=== PATIENT | male | born 1945 | race Caucasian/White ===

== ENCOUNTER 2019-09-14 00:32 | Emergency (ER) | payer OTHER ==
[~2019-09-14] VITALS: Ht 170.2 cm; Wt 88.5 kg
[2019-09-14 00:35] VITALS: BP_SYST 149
--- NOTE | 2019-09-14 00:35 | NUR ---
Patient triaged and placed in waiting room. VSS and patient appears in no acute distress at this time. Accompanied by SON, awaiting available bed, and MD notified of need for MSE.
--- NOTE | 2019-09-14 03:12 | NUR ---
Patient to ER bed MARQUEZ to gown for evaluation. Side rails up. Report given to STEPHANIA ABARCA.
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
--- NOTE | 2019-09-14 04:22 | NUR ---
ER MD Baez at bedside for medical evaluation.
[2019-09-14] MEDS ORDERED: METHOCARBAMOL 500 MG TABLET PO ONE (04:45)
[2019-09-14] MEDS ORDERED: ACETAMINOPHEN 500 MG TABLET PO ONE (04:45)
--- NOTE | 2019-09-14 05:25 | NUR ---
No adverse reactions noted after medication administration. Will continue to monitor.
[2019-09-14 05:26] VITALS: BP_SYST 134
--- NOTE | 2019-09-14 05:26 | NUR ---
Patient given written and verbal discharge instructions and verbalizes understanding. ER MD discussed with patient the results and treatment provided. Patient in stable condition. ID arm band removed. No Rx given. Patient educated on pain management and to follow up with PMD. Pain Scale 2/10 tolerable to patient. Opportunity for questions provided and answered.
== END 2019-09-14 05:26 | disposition home or self-care (01) ==
LOC: SED 00:32
DX: S13.9XXA Sprain of joints and ligaments of unspecified parts of neck, initial encounter (principal); G44.209 Tension-type headache, unspecified, not intractable; F43.10 Post-traumatic stress disorder, unspecified; J44.9 Chronic obstructive pulmonary disease, unspecified; Z88.6 Allergy status to analgesic agent; X58.XXXA Exposure to other specified factors, initial encounter; Y93.89 Activity, other specified; Y92.89 Other specified places as the place of occurrence of the external cause; Y99.8 Other external cause status
CPT/HCPCS: 70450-TC; 72125-TC; 72170-TC; 99284; J7030

== ENCOUNTER 2020-05-20 14:13 | Outpatient (CLI) | payer OTHER | END 2020-05-20 20:00 | disposition home or self-care (01) | LOC: SRD 14:13 | DX: G56.03 Carpal tunnel syndrome, bilateral upper limbs (principal) ==

== ENCOUNTER 2021-07-04 09:12 | Outpatient (CLI) | payer OTHER ==
[2021-07-04] MEDS ORDERED: BARIUM SULFATE 135 ML SUSP.RECON (E-Z-HD) PO ONE (09:34)
== END 2021-07-04 21:04 | disposition home or self-care (01) ==
LOC: SRD 09:12
PROVIDERS: ATTEND Internal Medicine
DX: R22.1 Localized swelling, mass and lump, neck (principal)
CPT/HCPCS: 74220-TC

== ENCOUNTER 2022-02-05 18:25 | Emergency (ER) | payer OTHER ==
[~2022-02-05] VITALS: Ht 170.2 cm; Wt 90.3 kg
[2022-02-05 18:25] VITALS: BP_SYST 144
[2022-02-05 20:14] LABS: BASOPHILS # (AUTO) 0.1 K/uL (0.0-0.2); BASOPHILS % (AUTO) 1.4 % (0.0-2.0); EOSINOPHILS # (AUTO) 0.3 K/uL (0.0-0.4); HEMATOCRIT 36.9 % (36-54); HEMOGLOBIN 12.3 g/dL (14.0-18.0); LYMPHOCYTES # (AUTO) 1.5 K/uL (1.0-5.5); LYMPHOCYTES % (AUTO) 15.6 % (20.5-51.5); MEAN CORPUSCULAR HEMOGLOBIN 28 pg (27-31); MEAN CORPUSCULAR HGB CONC 33 % (32-36); MEAN CORPUSCULAR VOLUME 86 fL (79.0-98.0); MONOCYTES # (AUTO) 0.7 K/uL (0.0-1.0); MONOCYTES % (AUTO) 7.8 % (1.7-9.3); NEUTROPHILS # (AUTO) 6.9 K/uL (1.8-7.7); NEUTROPHILS % (AUTO) 72.2 % (40.0-70.0); PLATELET COUNT (AUTO) 211 K/uL (130-430); RED BLOOD CELL COUNT(AUTO) 4.31 MIL/uL (4.2-6.2); RED CELL DISTRIBUTION WIDTH 15.2 % (9.0-15.0); WHITE BLOOD COUNT (AUTO) 9.5 K/uL (4.8-10.8)
[2022-02-05 20:32] LABS: ANION GAP 4 (5-15); CALCIUM 9.1 mg/dL (8.4-11.0); CHLORIDE 104 mmol/L (98-107); GLUCOSE 85 mg/dL (70-99); POTASSIUM 3.8 mmol/L (3.5-5.1); SODIUM SERUM 135 mmol/L (136-145); UREA NITROGEN, BLOOD 15 mg/dL (8-21)
[2022-02-05 20:35] LABS: BILIRUBIN,URINE NEGATIVE (NEGATIVE); BLOOD, URINE NEGATIVE (NEGATIVE); CLARITY/URINE CLEAR (CLEAR); COLOR,URINE YELLOW (YELLOW); GLUCOSE,URINE NEGATIVE (NEGATIVE); KETONES,URINE NEGATIVE (NEGATIVE); LEUKOCYTE ESTERASE ,URINE NEGATIVE (NEGATIVE); NITRITE, URINE NEGATIVE (NEGATIVE); PROTEIN URINE NEGATIVE (NEGATIVE); UROBILINOGEN,URINE 0.2 (0.2-1.0)
[2022-02-05 20:41] LABS: ALANINE AMINOTRANSFERASE 16 U/L (12-78); ALBUMIN 3.7 g/dL (3.4-4.8); ASPARTATE AMINOTRANSFERASE 22 U/L (10-37); TOTAL BILIRUBIN 0.3 mg/dL (0.0-1.0)
[2022-02-05] MEDS ORDERED: DIPH-TET-PERTUS Vaccine 0.5 ML VIAL (ADACEL) I.M. ONE ×2 (20:45→21:10)
[2022-02-05 21:27] VITALS: BP_SYST 128
== END 2022-02-05 23:00 | disposition home or self-care (01) ==
LOC: SED 18:25
DX: S60.211A Contusion of right wrist, initial encounter (principal); S60.512A Abrasion of left hand, initial encounter; S09.90XA Unspecified injury of head, initial encounter; R07.9 Chest pain, unspecified; M43.6 Torticollis; Z88.5 Allergy status to narcotic agent; Z88.6 Allergy status to analgesic agent; W01.198A Fall on same level from slipping, tripping and stumbling with subsequent striking against other object, initial encounter; Y93.89 Activity, other specified; Y92.89 Other specified places as the place of occurrence of the external cause; Y99.8 Other external cause status
CPT/HCPCS: 36415; 70450-TC; 71045; 72125-TC; 76376; 80053; 81003; 84484; 85025; 90715; 93005; 99285

== ENCOUNTER 2022-07-31 15:44 | Inpatient (IN) | payer OTHER ==
[~2022-07-31] VITALS: Ht 170.2 cm; Wt 93.4 kg
[2022-07-31 15:52] VITALS: BP_SYST 133
--- NOTE | 2022-07-31 15:52 | NUR ---
Placed in room 7 . Placed on air sampling and monitoring, blood pressure machine and pulse oximeter. To gown for exam. Side rails up. Report given to TEVIN OTT
--- NOTE | 2022-07-31 15:57 | NUR ---
ER at bedside examining patient.
--- NOTE | 2022-07-31 16:00 | NUR ---
EKG AND LABS OBTAINED.
--- NOTE | 2022-07-31 16:00 | NUR ---
# 20 gauge angiocath placed to LAC. Use of asceptic technique. Opsite placed over site. Blood return noted. Blood for lab drawn from site. Flushed with 10 cc of normal saline. No evidence of infiltration noted. Patient tolerated well.
--- NOTE | 2022-07-31 16:02 | NUR ---
CALL STROKE WAS CALLED.
--- NOTE | 2022-07-31 16:05 | NUR ---
PT TAKEN TO CT SCAN.
[2022-07-31 16:33] LABS: HEMATOCRIT 36.1 % (36-54); HEMOGLOBIN 12.2 g/dL (14.0-18.0); MEAN CORPUSCULAR HEMOGLOBIN 29 pg (27-31); MEAN CORPUSCULAR HGB CONC 34 % (32-36); MEAN CORPUSCULAR VOLUME 86 fL (79.0-98.0); PLATELET COUNT (AUTO) 192 K/uL (130-430); RED BLOOD CELL COUNT(AUTO) 4.21 MIL/uL (4.2-6.2); RED CELL DISTRIBUTION WIDTH 15.8 % (9.0-15.0); WHITE BLOOD COUNT (AUTO) 25.2 K/uL (4.8-10.8)
[2022-07-31 16:37] LABS: ANION GAP 10 (5-15); CALCIUM 8.3 mg/dL (8.4-11.0); CHLORIDE 102 mmol/L (98-107); CREATININE 1.63 mg/dL (0.55-1.30); GLUCOSE 90 mg/dL (70-99); UREA NITROGEN, BLOOD 20 mg/dL (8-21)
--- NOTE | 2022-07-31 16:40 | NUR ---
TELE-NEURO CONSULT PREFORMED BY DR. BROWN.
[2022-07-31 16:44] LABS: ALANINE AMINOTRANSFERASE 16 U/L (12-78); ALBUMIN 2.3 g/dL (3.4-4.8); ASPARTATE AMINOTRANSFERASE 14 U/L (10-37); TOTAL BILIRUBIN 0.5 mg/dL (0.0-1.0)
--- NOTE | 2022-07-31 16:45 | NUR ---
DR. MOELLER SPOKE TO DR. BROWN, PT WILL NOT RECEIVED TPA.
[2022-07-31 16:50] LABS: BAND % (MANUAL) 2 % (0-6); BASOPHILS % (MANUAL) 0 % (0-2); EOSINOPHILS % (MANUAL) 0 % (0-7); LYMPHOCYTES % (MANUAL) 9 % (20-46); MONOCYTES % (MANUAL) 6 % (0-11); MYELOCYTES % 1 % (0-0)
[2022-07-31] MEDS ORDERED: iohexoL 350 mgI/mL, 100 ML INFUS..BTL IV ONE (16:53)
[2022-07-31 17:02] LABS: INR 1.1 (0.80-1.20)
--- NOTE | 2022-07-31 17:07 | NUR ---
MED REC AND BELONGINGS COMPLETED.
--- NOTE | 2022-07-31 17:16 | NUR ---
COVID OBTAINED AND TAKEN TO LAB, [facility] REC AND BELONGINGS COMPLETED.
--- NOTE | 2022-07-31 17:17 | NUR ---
CT CONTRAST CONSENT OBTAINED. PT TAKEN FOR C/T ANGIOGRAM AT THIS TIME.
[2022-07-31] MEDS ORDERED: TRAZ300T2 PO (17:30)
[2022-07-31] MEDS ORDERED: VITD2000 PO (17:30)
[2022-07-31] MEDS ORDERED: CYAN100T44 PO (17:30)
[2022-07-31] MEDS ORDERED: MULT-1117 PO (17:30)
[2022-07-31] MEDS ORDERED: NEU300 PO (17:30)
[2022-07-31] MEDS ORDERED: SYN50 PO (17:30)
[2022-07-31] MEDS ORDERED: LIP20 PO (17:30)
[2022-07-31] MEDS ORDERED: SERT-131 PO (17:30)
--- NOTE | 2022-07-31 17:49 | NUR ---
DR. MOELLER AT BEDSIDE TO ASSESS PT AND DISCUSS POC. INFORMED DR. MOELLER PT WALKS WITH A CANE BUT HAS NEW ONSET BLE WEAKNESS AND DIFFICULTY REPOSITIONING IN BED. NNOS.
[2022-07-31] MEDS ORDERED: NS 500 ML IV ONE (18:00)
--- NOTE | 2022-07-31 18:00 | NUR ---
PT UNABLE TO URINATED, MADE AWARE URINE SPECIMEN IS NEEDED. NS 500ML IV AT 999ML/HOUR INITIATED.
--- NOTE | 2022-07-31 18:29 | NUR ---
SWALLOW EVAL COMPLETED. PT TOLERATED APPLE SAUCE AND THIN LIQIUDS WITH NO S/S OF ASPIRATION.
--- NOTE | 2022-07-31 19:07 | NUR ---
RECIEVED REPORT FROM TEVIN PANDEY.
--- NOTE | 2022-07-31 19:11 | NUR ---
PT ENDORSED TO TEVIN ANNE. ALL QUESTIONS AND CONCERNS ADDRESSED.
--- NOTE | 2022-07-31 20:26 | NUR ---
URINE SAMPLE SENT TO LAB.
[2022-07-31 20:35] LABS: BILIRUBIN,URINE NEGATIVE (NEGATIVE); BLOOD, URINE NEGATIVE (NEGATIVE); CLARITY/URINE CLEAR (CLEAR); COLOR,URINE YELLOW (YELLOW); GLUCOSE,URINE NEGATIVE (NEGATIVE); KETONES,URINE NEGATIVE (NEGATIVE); LEUKOCYTE ESTERASE ,URINE NEGATIVE (NEGATIVE); NITRITE, URINE NEGATIVE (NEGATIVE); PROTEIN URINE NEGATIVE (NEGATIVE); UROBILINOGEN,URINE 0.2 (0.2-1.0)
--- NOTE | 2022-07-31 20:40 | NUR ---
Pt resting in bed awake. Pt A&O X4, and following commands. Pt has left sided facial droop, slight weakness in left sided oil and gas drafter when compared to right. Pt able to lift both legs and hold them in the air. VSS, safety precautions in place and connected to monitor.
[2022-07-31 20:45] LABS: BARBITURATE, URINE NEGATIVE (NEG <=200); BENZODIAZEPINE, URINE NEGATIVE (NEG <=150); CANNABINOID, URINE NEGATIVE (NEG <=50); COCAINE, URINE NEGATIVE (NEG <=150); METHAMPHETAMINES SCREEN,URINE NEGATIVE (NEG <=500); OPIATE, URINE NEGATIVE (NEG <=100); PHENCYCLIDINE SCREEN,URINE NEGATIVE (NEG <=25); UR TRICYCLIC ANTIDEPRESSANTS NEGATIVE (NEG <=300); URINE AMPHETAMINE NEGATIVE (NEG <=500); URINE METHADONE NEGATIVE (NEG <=200); URINE OXYCODONE SCREEN NEGATIVE (NEG <=100); URINE PROPOXYPHENE SCREEN NEGATIVE (NEG <=300)
--- NOTE | 2022-07-31 21:18 | NUR ---
Admit bed requested Patient will be admitted to care of [SCOTT]. Admitted to [TELE] unit. Diagnosis [CVA] Inpatient (Yes or No) [YES] Observation (Yes or No) [NO] Orientation concerns or request close to nursing station (Yes or No) [YES] Covid Status [NEG] On vent or bipap [NO] Isolation requirements [NONE] Needs a sitter [NO] From Home (Yes or if No enter name of facility) [YES] Requires Dialysis (Yes or No) [NO] Med Rec Completed (Yes of No) [NO]
[2022-07-31] MEDS ORDERED: ONDANSETRON HCL 4 MG/2 ML VIAL IVP PRN (21:45)
[2022-07-31] MEDS ORDERED: IBUPROFEN 600 MG TABLET PO PRN (21:45)
[2022-07-31] MEDS ORDERED: LORazepam 2 MG/ML VIAL IVP PRN (21:45)
[2022-07-31] MEDS ORDERED: NORMAL SALINE 5 ML DISP.SYRIN IVF SCH (22:00)
[2022-07-31] MEDS: NORMAL SALINE 5 ML DISP.SYRIN IVF SCH (22:00)
--- NOTE | 2022-07-31 22:20 | NUR ---
Patient will be admitted to care of Dr. CHAVEZ. Admitted to TELEMETRY unit. Will go to room 101B. Belongings list completed. Complete and up to date summary report printed. SBAR report given to MEG ABARCA at bedside with opportunity for questions.
--- NOTE | 2022-07-31 22:30 | NUR ---
Admission Note Received patient from ER with diagnosis of CEREBRAL VASCULAR ACCIDENT. Initial Plan of Care discussed-patient verbalized understanding. Family at bedside. Oriented to room, call light, pain management and safety.
[2022-07-31 22:43] VITALS: BP_SYST 115
--- NOTE | 2022-07-31 22:58 | NUR ---
NEW ADMISSION FROM ED, CVA WITH RIGHT FACIAL DROOP/ NO DRIFTS NOTED TO EXTREMITIES , STRONG HAND ORAL AND MAXILLOFACIAL PATHOLOGIST AND STRONG FOOT PUSHES . WILL CONTINUE TO MONITOR, SLURRED SPEECH
--- NOTE | 2022-08-01 02:56 | NUR ---
PATIENT RESTING QUIETLY IN BED WITH EYES CLOSED , WIIL CONTINUE TO MONITOR
[2022-08-01 04:12] VITALS: BP_SYST 120
--- NOTE | 2022-08-01 04:14 | NUR ---
PATIENT COMPLAINED OF HEADACHE OF 7 ON A SCALE OF 7/10, MEDICATED ORDERED. BP120/48 , HR64, RR16 , O2SAT 96 ON RA, TEMP 97.2. WILL RE-EVALUATE FOR PAIN
[2022-08-01 05:34] LABS: BASOPHILS # (AUTO) 0.2 K/uL (0.0-0.2); BASOPHILS % (AUTO) 1.1 % (0.0-2.0); EOSINOPHILS # (AUTO) 0.1 K/uL (0.0-0.4); EOSINOPHILS % (AUTO) 0.7 % (0.0-4.0); HEMATOCRIT 36.6 % (36-54); HEMOGLOBIN 12.3 g/dL (14.0-18.0); LYMPHOCYTES # (AUTO) 1.4 K/uL (1.0-5.5); LYMPHOCYTES % (AUTO) 8.2 % (20.5-51.5); MEAN CORPUSCULAR HEMOGLOBIN 29 pg (27-31); MEAN CORPUSCULAR HGB CONC 34 % (32-36); MEAN CORPUSCULAR VOLUME 85 fL (79.0-98.0); MONOCYTES # (AUTO) 1.3 K/uL (0.0-1.0); MONOCYTES % (AUTO) 7.6 % (1.7-9.3); NEUTROPHILS # (AUTO) 13.9 K/uL (1.8-7.7); NEUTROPHILS % (AUTO) 82.4 % (40.0-70.0); PLATELET COUNT (AUTO) 161 K/uL (130-430); RED BLOOD CELL COUNT(AUTO) 4.28 MIL/uL (4.2-6.2); RED CELL DISTRIBUTION WIDTH 15.9 % (9.0-15.0); WHITE BLOOD COUNT (AUTO) 16.9 K/uL (4.8-10.8)
[2022-08-01] MEDS: NORMAL SALINE 5 ML DISP.SYRIN IVF SCH ×3 (05:56→22:00)
[2022-08-01] MEDS: LEVOTHYROXINE SODIUM 0.05 MG TABLET PO SCH (06:20)
--- NOTE | 2022-08-01 07:10 | NUR ---
opening received Sbar from night nurse, patient laying in bed, with eyes closed, repirations are even and non labored, bed in low and locked position, call light within reach
[2022-08-01 07:15] LABS: ANION GAP 6 (5-15); CALCIUM 8.5 mg/dL (8.4-11.0); CHLORIDE 104 mmol/L (98-107); CHOLESTEROL 151 mg/dL (<200); CREATININE 1.14 mg/dL (0.55-1.30); GLUCOSE 102 mg/dL (70-99); HDL CHOLESTEROL 55 mg/dL (>45); LDL CHOLESTEROL 90 mg/dL (<100); PHOSPHORUS 3.6 mg/dL (2.7-4.5); TRIGLYCERIDES 69 mg/dL (30-150); UREA NITROGEN, BLOOD 16 mg/dL (8-21)
[2022-08-01 08:04] VITALS: BP_SYST 120
[2022-08-01] MEDS: MULTIVITAMINS TAB 1 TABLET PO SCH (09:22)
[2022-08-01] MEDS: SERTRALINE HCL 50 MG TABLET PO SCH (09:22)
[2022-08-01] MEDS: CYANOCOBALAMIN 1000 mCg TABLET PO SCH (09:23)
[2022-08-01] MEDS: CHOLECALCIFEROL (VITAMIN D3) 2,000 UNIT TABLET PO SCH (09:25)
[2022-08-01] MEDS: GABAPENTIN 300 MG CAPSULE PO SCH (09:30)
[2022-08-01 11:22] VITALS: BP_SYST 116
--- NOTE | 2022-08-01 13:26 | NUR ---
education provided education to patient and daughter at bedside regarding bp, dm, smoking cessation, weight control,high cholesterol. patient verbalized understanding
--- NOTE | 2022-08-01 14:10 | NUR ---
nurse notes paged dr. jones for dvt prophylaxis
[2022-08-01 15:23] VITALS: BP_SYST 136
--- NOTE | 2022-08-01 16:13 | NUR ---
MD DR. BRAGA BEDSIDE EXAMINING PATIENT FAMILY AT BEDSIDE
--- NOTE | 2022-08-01 16:45 | NUR ---
PAIN PT COMPLAINS OF DULL HEAD PAIN, DR. BRAGA ON THE FLOOR AND RECEIVED NEW ORDERS
[2022-08-01] MEDS: ACETAMINOPHEN 500 MG TABLET PO PRN (16:51)
--- NOTE | 2022-08-01 19:13 | NUR ---
CLOSING PROVIDE SBAR TO NIGHT RN, PATIENT IN BED AWAKE, REPARATIONS ARE EVEN AND NON LABORED, CALL LIGHT WITHIN REACH, BED IN LOW AND LOCKED POSITION, FAMILY AT BEDSIDE
[2022-08-01 21:00] VITALS: BP_SYST 126
--- NOTE | 2022-08-01 21:00 | NUR ---
Patient is alert oriented x 4 ,NIH assessment completed clear speech,denies any pain , safety and fall precaution initiated, call light within reach,needs attended.
[2022-08-01] MEDS: ATORVASTATIN 20 MG TABLET PO SCH (21:22)
[2022-08-01] MEDS: traZODone HCL 50 MG TABLET (DESYREL) PO SCH (21:23)
[2022-08-02] VITALS (12 sets, daily range): BP systolic 85–131
--- NOTE | 2022-08-02 01:08 | NUR ---
Patient is able to reposition self in bed and is encouraged to request assistance when needed.
[2022-08-02] MEDS: NORMAL SALINE 5 ML DISP.SYRIN IVF SCH ×3 (06:32→22:02)
[2022-08-02] MEDS: LEVOTHYROXINE SODIUM 0.05 MG TABLET PO SCH (06:32)
[2022-08-02 06:41] LABS: HEMATOCRIT 38.1 % (36-54); HEMOGLOBIN 12.5 g/dL (14.0-18.0); MEAN CORPUSCULAR HEMOGLOBIN 28 pg (27-31); MEAN CORPUSCULAR HGB CONC 33 % (32-36); MEAN CORPUSCULAR VOLUME 86 fL (79.0-98.0); PLATELET COUNT (AUTO) 181 K/uL (130-430); RED BLOOD CELL COUNT(AUTO) 4.44 MIL/uL (4.2-6.2)
--- NOTE | 2022-08-02 06:41 | NUR ---
Patient alert/oriented with episodes of forgetfulness,NIH 0 , with chronic mild left facial droop , safety/fall precaution initiated.
[2022-08-02 06:53] LABS: ANION GAP 10 (5-15); C-REACTIVE PROTEIN QUANT 11.5 mg/dL (0-0.5); CHLORIDE 103 mmol/L (98-107); CREATININE 1.06 mg/dL (0.55-1.30); GLUCOSE 127 mg/dL (70-99); UREA NITROGEN, BLOOD 17 mg/dL (8-21)
--- NOTE | 2022-08-02 07:20 | NUR ---
OPENING RECEIVED SBAR FROM RN, PATIENT IS AWAKE AND IS SITTING ON BED, RESPIRATIONS ARE EVEN AND NON LABORED, BED IS IN LOW AND LOCKED POSITION, CALL LIGHT WITHIN REACH
--- NOTE | 2022-08-02 08:10 | NUR ---
NURSE NOTES, PATIENT SITTING ON THE CHAIR ENJOYING BREAKFAST, CHANGED BED LINEN AND HELPED PATIENT TO BED. WARM BLANKETS PROVIDED
[2022-08-02 08:23] LABS: WHITE BLOOD COUNT (AUTO) 23.7 K/uL (4.8-10.8)
[2022-08-02] MEDS: SERTRALINE HCL 50 MG TABLET PO SCH (08:23)
[2022-08-02] MEDS: GABAPENTIN 300 MG CAPSULE PO SCH (08:24)
[2022-08-02] MEDS: MULTIVITAMINS TAB 1 TABLET PO SCH (08:24)
[2022-08-02] MEDS: CYANOCOBALAMIN 1000 mCg TABLET PO SCH (08:24)
[2022-08-02] MEDS: CHOLECALCIFEROL (VITAMIN D3) 2,000 UNIT TABLET PO SCH (08:24)
--- NOTE | 2022-08-02 09:19 | NUR ---
EEG TEST CLEANER AT BEDSIDE
[2022-08-02 10:14] LABS: ERYTHROCYTE SEDIMENTATION RATE 30 MM/HR (0-15)
--- NOTE | 2022-08-02 11:32 | NUR ---
CONSULT ID INCREASED WBC BRADLEY LOYOLA [phone] S/W LUIS EXCHANGE
--- NOTE | 2022-08-02 11:45 | NUR ---
MD DR Juan Miguel LIVINGSTON INFORMED OF INCREASED WBC. NEW ORDERS RECEIVED
[2022-08-02 13:27] LABS: ATYPICAL LYMPHOCYTES % 0 % (0-0); BAND % (MANUAL) 3 % (0-6); BASOPHILS % (MANUAL) 0 % (0-2); EOSINOPHILS % (MANUAL) 3 % (0-7); LYMPHOCYTES % (MANUAL) 4 % (20-46); MONOCYTES % (MANUAL) 6 % (0-11)
[2022-08-02 13:28] LABS: WBC MORPHOLOGY TOXIC VACUOLATION
[2022-08-02] MEDS: ACETAMINOPHEN 500 MG TABLET PO PRN (14:02)
[2022-08-02] MEDS: CEFEPIME 1 GM in D5W 50 ML IV SCH ×2 (14:05→20:32)
[2022-08-02] MEDS ORDERED: MIDODRINE HCL 5 MG TABLET (PROAMATINE) PO ONE (14:30)
--- NOTE | 2022-08-02 16:30 | NUR ---
Dietitian Recommendations * Continue cardiac diet * Daily Ensure Enlive (ONS provides 350kcals and 20g protein) * Recommend obtaining Hgba1c values Please refer to nutrition assessment for details, thanks! CC, MPH, RDN
--- NOTE | 2022-08-02 17:07 | NUR ---
CM: faxed DCP HH/PT and possible IV abx to [facility], fannie Tejeda fax# [phone], tel [phone]. The dc is pending MRI brain, UA cx, Bcx and finalized home antibiotic. The patient lives with daughter and already has FWW, BSC and a cane.
--- NOTE | 2022-08-02 19:00 | NUR ---
received pt from outgoing nurse resting in bed, he is alert and oriented x 4 .breathing spontaneously on room air.vestals done are within normal range.pt has a peripheral line with NS to kvo
--- NOTE | 2022-08-02 19:10 | NUR ---
closing gave sbar to night nurse, patient is awake laying in bed, respirations are even and non labored, bed is low and lock position, family is at bed side. endorsed care and MRI consent to night nurse.
[2022-08-02] MEDS: ATORVASTATIN 20 MG TABLET PO SCH (20:26)
[2022-08-02] MEDS: traZODone HCL 50 MG TABLET (DESYREL) PO SCH (21:00)
--- NOTE | 2022-08-02 21:00 | NUR ---
medicated as ordered
[2022-08-02] MEDS: MIDODRINE HCL 5 MG TABLET (PROAMATINE) PO SCH (22:02)
[2022-08-03] MEDS: CEFEPIME 1 GM in D5W 50 ML IV SCH ×3 (05:36→21:23)
[2022-08-03] MEDS: NORMAL SALINE 5 ML DISP.SYRIN IVF SCH ×3 (05:37→22:00)
[2022-08-03] MEDS: LEVOTHYROXINE SODIUM 0.05 MG TABLET PO SCH (06:21)
[2022-08-03 07:05] LABS: BASOPHILS # (AUTO) 0.2 K/uL (0.0-0.2); BASOPHILS % (AUTO) 1.4 % (0.0-2.0); EOSINOPHILS # (AUTO) 0.1 K/uL (0.0-0.4); EOSINOPHILS % (AUTO) 0.4 % (0.0-4.0); HEMATOCRIT 36.9 % (36-54); HEMOGLOBIN 12.6 g/dL (14.0-18.0); LYMPHOCYTES # (AUTO) 1.1 K/uL (1.0-5.5); LYMPHOCYTES % (AUTO) 6.3 % (20.5-51.5); MEAN CORPUSCULAR HEMOGLOBIN 29 pg (27-31); MEAN CORPUSCULAR HGB CONC 34 % (32-36); MEAN CORPUSCULAR VOLUME 85 fL (79.0-98.0); MONOCYTES % (AUTO) 5.8 % (1.7-9.3); NEUTROPHILS # (AUTO) 14.9 K/uL (1.8-7.7); NEUTROPHILS % (AUTO) 86.1 % (40.0-70.0); PLATELET COUNT (AUTO) 178 K/uL (130-430); RED BLOOD CELL COUNT(AUTO) 4.34 MIL/uL (4.2-6.2); RED CELL DISTRIBUTION WIDTH 15.8 % (9.0-15.0); WHITE BLOOD COUNT (AUTO) 17.3 K/uL (4.8-10.8)
--- NOTE | 2022-08-03 07:48 | NUR ---
Awaits MRI TODAY.MRI CONSENT FORM SIGNED
[2022-08-03 08:00] VITALS: BP_SYST 101
--- NOTE | 2022-08-03 08:00 | NUR ---
LATE ENTRY PT STABLE NOT IN ACUTE DISTRESS. DENIES ANY PAIN OR ORTHER DISCOMFORT.
[2022-08-03] MEDS: GABAPENTIN 300 MG CAPSULE PO SCH ×2 (08:54→21:21)
[2022-08-03] MEDS: CYANOCOBALAMIN 1000 mCg TABLET PO SCH (08:54)
[2022-08-03] MEDS: MIDODRINE HCL 5 MG TABLET (PROAMATINE) PO SCH (08:54)
[2022-08-03] MEDS: CHOLECALCIFEROL (VITAMIN D3) 2,000 UNIT TABLET PO SCH (08:54)
[2022-08-03] MEDS: MULTIVITAMINS TAB 1 TABLET PO SCH (08:54)
[2022-08-03] MEDS: SERTRALINE HCL 50 MG TABLET PO SCH (08:54)
[2022-08-03 09:05] LABS: ALANINE AMINOTRANSFERASE 11 U/L (12-78); ALBUMIN 3.3 g/dL (3.4-4.8); ANION GAP 11 (5-15); ASPARTATE AMINOTRANSFERASE 17 U/L (10-37); CALCIUM 9.3 mg/dL (8.4-11.0); CHLORIDE 104 mmol/L (98-107); CREATININE 1.03 mg/dL (0.55-1.30); GLUCOSE 107 mg/dL (70-99); TOTAL BILIRUBIN 0.7 mg/dL (0.0-1.0); UREA NITROGEN, BLOOD 18 mg/dL (8-21)
--- NOTE | 2022-08-03 10:00 | NUR ---
AMBULATED TO BATHROOM WITH STEADY GAIT
[2022-08-03 10:21] LABS: ERYTHROCYTE SEDIMENTATION RATE 44 MM/HR (0-15)
[2022-08-03 10:59] LABS: C-REACTIVE PROTEIN QUANT 17.5 mg/dL (0-0.5)
--- NOTE | 2022-08-03 11:32 | NUR ---
Discharge Planning: MELQUIADESP followed up with [facility] [phone] per Nikhil pt accepted and Nikhil spoke with daughter Leona.
[2022-08-03 12:00] VITALS: BP_SYST 132
--- NOTE | 2022-08-03 13:00 | NUR ---
PT STABLE NOT IN ACUTE DISTRESS.
[2022-08-03 15:31] VITALS: BP_SYST 132
[2022-08-03] MEDS ORDERED: GABAPENTIN 300 MG CAPSULE PO SCH (16:43)
[2022-08-03] MEDS ORDERED: MIDODRINE HCL 5 MG TABLET (PROAMATINE) PO PRN (17:15)
[2022-08-03 19:26] VITALS: BP_SYST 117
--- NOTE | 2022-08-03 19:30 | NUR ---
PT STABLE FAMILY AT BED SIDE. SEEN BY DR BRAGA. KEPT COMFORTABLE. REPORT GIVEN TO NIGHT NURSE
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
[2022-08-03] MEDS ORDERED: traZODone HCL 50 MG TABLET (DESYREL) PO SCH (21:00)
[2022-08-03] MEDS: ATORVASTATIN 20 MG TABLET PO SCH (21:21)
[2022-08-04 00:04] VITALS: BP_SYST 102
--- NOTE | 2022-08-04 00:38 | NUR ---
PATIENT WANTS MEDICAL DOCTORS TO KNOW HE IS CURRENTLY RECEIVING A SERIES OF SIX INJECTIONS IN HIS EYE FOR A PROBLEM WITH VISUAL DISTURBANCES AND HALLUCINATIONS HE WAS HAVING WHILE FISHING.
[2022-08-04] MEDS: CEFEPIME 1 GM in D5W 50 ML IV SCH ×2 (05:36→13:17)
[2022-08-04] MEDS: NORMAL SALINE 5 ML DISP.SYRIN IVF SCH ×2 (05:37→14:11)
[2022-08-04 06:46] LABS: BASOPHILS # (AUTO) 0.3 K/uL (0.0-0.2); BASOPHILS % (AUTO) 1.6 % (0.0-2.0); EOSINOPHILS # (AUTO) 0.2 K/uL (0.0-0.4); EOSINOPHILS % (AUTO) 1.1 % (0.0-4.0); HEMATOCRIT 37.3 % (36-54); HEMOGLOBIN 12.4 g/dL (14.0-18.0); LYMPHOCYTES # (AUTO) 1.3 K/uL (1.0-5.5); LYMPHOCYTES % (AUTO) 8.3 % (20.5-51.5); MEAN CORPUSCULAR HEMOGLOBIN 28 pg (27-31); MEAN CORPUSCULAR HGB CONC 33 % (32-36); MEAN CORPUSCULAR VOLUME 86 fL (79.0-98.0); MONOCYTES % (AUTO) 6.3 % (1.7-9.3); NEUTROPHILS % (AUTO) 82.7 % (40.0-70.0); PLATELET COUNT (AUTO) 197 K/uL (130-430); RED BLOOD CELL COUNT(AUTO) 4.35 MIL/uL (4.2-6.2); RED CELL DISTRIBUTION WIDTH 15.7 % (9.0-15.0); WHITE BLOOD COUNT (AUTO) 15.8 K/uL (4.8-10.8)
[2022-08-04] MEDS: LEVOTHYROXINE SODIUM 0.05 MG TABLET PO SCH (06:51)
[2022-08-04 07:21] LABS: ANION GAP 10 (5-15); C-REACTIVE PROTEIN QUANT 11.2 mg/dL (0-0.5); CALCIUM 9.6 mg/dL (8.4-11.0); CHLORIDE 104 mmol/L (98-107); CREATININE 1.12 mg/dL (0.55-1.30); GLUCOSE 96 mg/dL (70-99); UREA NITROGEN, BLOOD 22 mg/dL (8-21)
--- NOTE | 2022-08-04 07:50 | NUR ---
PHYSICAL THERAPY CO-SIGN The Physical Therapy Progress Notes documented by Computer Systems Hardware Analyst have been reviewed. Reviewed/Co-Signed by: Ayo Chavez Documentation Done by: SHAUNA GARCIA PTA Addendum: 08/04/22 at 0750 by Ayo Chavez PT Amended: Links added.
[2022-08-04 08:00] VITALS: BP_SYST 115
[2022-08-04 08:01] VITALS: BP_SYST 120
[2022-08-04 08:02] VITALS: BP_SYST 106
[2022-08-04] MEDS: CYANOCOBALAMIN 1000 mCg TABLET PO SCH (08:44)
[2022-08-04] MEDS: MULTIVITAMINS TAB 1 TABLET PO SCH (08:44)
[2022-08-04] MEDS: GABAPENTIN 300 MG CAPSULE PO SCH (08:44)
[2022-08-04] MEDS: SERTRALINE HCL 50 MG TABLET PO SCH (08:45)
[2022-08-04] MEDS: CHOLECALCIFEROL (VITAMIN D3) 2,000 UNIT TABLET PO SCH (08:45)
[2022-08-04 11:27] VITALS: BP_SYST 104
[2022-08-04 11:53] LABS: ERYTHROCYTE SEDIMENTATION RATE 49 MM/HR (0-15)
[2022-08-04 15:23] VITALS: BP_SYST 118
[2022-08-04] MEDS ORDERED: LEVO250T73 PO (16:36)
[2022-08-04] MEDS ORDERED: GABAPENTIN 300 MG CAPSULE PO SCH (21:00)
--- NOTE | 2022-08-05 07:08 | NUR ---
PHYSICAL THERAPY CO-SIGN The Physical Therapy Progress Notes documented by Retail Support Specialist have been reviewed. Reviewed/Co-Signed by: Ayo Chavez Documentation Done by: SHAUNA GARCIA PTA Addendum: 08/05/22 at 0709 by Ayo Chavez PT Amended: Links added.
--- NOTE | 2022-08-05 08:20 | NUR ---
Dispo code 06
== END 2022-08-04 23:13 | disposition home health service (06) | DRG 73 ==
LOC: SED 15:44 → STU 21:12
PROVIDERS: ADMIT Preventive Medicine Preventive Medicine/Occupational Environmental Medicine; ATTEND Preventive Medicine Preventive Medicine/Occupational Environmental Medicine
DX: G51.4 Facial myokymia (principal); E43 Unspecified severe protein-calorie malnutrition; N17.0 Acute kidney failure with tubular necrosis; G45.9 Transient cerebral ischemic attack, unspecified; J44.0 Chronic obstructive pulmonary disease with (acute) lower respiratory infection; G51.0 Bell's palsy; D64.9 Anemia, unspecified; E78.00 Pure hypercholesterolemia, unspecified; E03.9 Hypothyroidism, unspecified; E11.65 Type 2 diabetes mellitus with hyperglycemia; E55.9 Vitamin D deficiency, unspecified; E88.09 Other disorders of plasma-protein metabolism, not elsewhere classified; F17.200 Nicotine dependence, unspecified, uncomplicated; F43.10 Post-traumatic stress disorder, unspecified; G47.00 Insomnia, unspecified; G62.9 Polyneuropathy, unspecified; F32.A Depression, unspecified; I10 Essential (primary) hypertension; Z20.822 Contact with and (suspected) exposure to COVID-19; R29.6 Repeated falls; R29.705 NIHSS score 5; Z85.05 Personal history of malignant neoplasm of liver; Z85.118 Personal history of other malignant neoplasm of bronchus and lung; Z98.1 Arthrodesis status; Z79.899 Other long term (current) drug therapy; Z88.5 Allergy status to narcotic agent; Z88.8 Allergy status to other drugs, medicaments and biological substances
CPT/HCPCS: 36415; 70450-TC; 70496; 70498; 70551; 71045; 76376; 80048; 80053; 80061; 80307; 81003; 83735; 84100; 84484; 85007; 85025; 85027; 85610-TC; 85651-TC; 85730-TC; 86140; 86886; 86900; 86901; 87040; 87086; 93005; 93306; 95816; 97110-GP; 97112-GP; 97116-GP; 97530-GP; 99291; G0378; J0692; J7030; J7060; Q9967

== ENCOUNTER 2024-07-24 09:57 | Emergency (ER) | payer OTHER ==
[~2024-07-24] VITALS: Ht 170.2 cm; Wt 86.2 kg
[~2024-07-24 09:57] MED LIST: CYAN100T44 PO; LEVO250T73 PO; LIP20 PO; MULT-1117 PO; NEU300 PO; SERT-131 PO; SYN50 PO; TRAZ300T2 PO; VITD2000 PO
[2024-07-24 10:10] VITALS: BP_SYST 121; PULSE 64; RESP 18; TEMP 97.6; O2SAT 97
[2024-07-24 11:38] VITALS: BP_SYST 121; PULSE 67; RESP 18; TEMP 97.6; O2SAT 100
== END 2024-07-24 11:36 | disposition home or self-care (01) ==
LOC: SED 09:57
DX: S01.01XD Laceration without foreign body of scalp, subsequent encounter (principal); Z48.02 Encounter for removal of sutures; J44.9 Chronic obstructive pulmonary disease, unspecified; Z88.5 Allergy status to narcotic agent; Z88.6 Allergy status to analgesic agent; X58.XXXD Exposure to other specified factors, subsequent encounter
CPT/HCPCS: 99281